=== PATIENT | female | born 1945 | race Caucasian/White ===

== ENCOUNTER 2017-11-16 14:22 | Inpatient (IN) | payer MEDICARE, SELFPAY ==
[~2017-11-16] VITALS: Ht 157.5 cm; Wt 74.3 kg
[~2017-11-16 14:22] MED LIST: ALBU90OI INH; ALBU90OI61 INH; AZIT250 PO; Actonel150 MG PO; Albuterol2.5 MG/0.5 INH; BENZ1; BENZ1 PO; BUPR150ER; BUPR150T2; Bumetanide2 MG PO; CALCAVITD PO; CALCITRIOL MC; CALGLU500 PO; CLON.5; COMBIVENT RESPIM4 GM INH; CYCL10 PO; Calcitriol0.25 MCG PO; DICMIS75EC PO; DIPH50; DULO30 PO; DULO60; DULO60 PO; FURO20; FURO40 PO; GABA300 PO; HYDACE5 PO; HYDPAM50 PO; IBUP800; IBUP800 PO; LISHYD1012 PO; LISI10; LISINOPRIL; LOXA10; LOXA10 PO; LOXAPINE; METCELP PO; METO10 PO; MIRT15; MIRT30 PO; Magnesium PO; OCEAN NS; OLME20 PO; ONDA8ODT MM; OXYC5 PO; PARI1 PO; PHENTERMINE PO; POTA10T; POTA10T PO; POTCHL10ER PO; PRAZ1 PO; PRED20 PO; PROM25 PO; PROP10 PO; Primidone50 MG PO; QUET100 PO; QUET300; QUET300 PO; RISE30 PO; RXOXYACE PO; Spironolactone25 MG PO; Synthroid25 MCG PO; TIOT18; VENL75ER PO; VITAMIN D35000 UNIT PO; [UNRECOGNIZED DRUG - OTHER] PO
[2017-11-16 15:18] LABS: BASOPHILS ABSOLUTE AUTO 0.03 K/mm3 (0.00-0.23); BASOPHILS PERCENT AUTO 0 % (0-2); EOSINOPHILS PERCENT AUTO 0 % (0-6); Hemoglobin 13.8 g/dL (11.5-16.0); IMMATURE GRAN ABSOLUTE AUTO 0.05 K/mm3 (0.00-0.10); IMMATURE GRAN PERCENT AUTO 0 % (0-1); LYMPHOCYTES ABSOLUTE AUTO 1.16 K/mm3 (0.84-5.20); LYMPHOCYTES PERCENT AUTO 7 % (21-46); MONOCYTES PERCENT AUTO 5 % (4-13); Mean Corpuscular HGB 28.8 pg (26.0-34.0); Mean Corpuscular HGB Conc 33.7 g/dL (31.5-36.5); Mean Corpuscular Volume 86 fL (80-100); Mean Platelet Volume 10.8 fL (9.1-12.4); NEUTROPHILS ABSOLUTE AUTO 15.22 K/mm3 (1.96-9.15); NEUTROPHILS PERCENT AUTO 88 % (41-73); Platelet Count 279 K/mm3 (150-400); RDW Coefficient Variation 12.2 % (11.7-14.2); RDW Standard Deviation 38.5 fL (35.1-46.3); Red Blood Cell Count 4.79 M/mm3 (3.80-5.20); White Blood Cell Count 17.26 K/mm3 (4.00-11.30)
[2017-11-16 15:37] LABS: Alanine Aminotransfer (ALT/SGP 17 U/L (12-78); Albumin, Blood 3.3 g/dL (3.4-5.0); Albumin/Globulin Ratio 0.8 (0.8-1.8); Alk Phos 98 U/L (50-136); Anion Gap 13 mmol/L (6-16); Aspartate Aminotrans (AST/SGOT 13 U/L (12-37); Bilirubin, Total 0.5 mg/dL (0.1-1.0); Blood Urea Nitrogen 13 mg/dL (8-24); Bun/Creatinine Ratio 16.3 (12.0-20.0); CO2, Blood 22 mmol/L (21-32); Chloride, Blood 104 mmol/L (98-108); Globulin, Blood 4.1 g/dL (2.2-4.0); Glomerular Filtration Rate >60 (60-); Glucose, Blood 147 mg/dL (70-99); Potassium, Blood 3.8 mmol/L (3.5-5.5); Sodium, Blood 139 mmol/L (136-145); Total Protein, Blood 7.4 g/dL (6.4-8.2)
[2017-11-16] MEDS ORDERED: Lisinopril2.5 MG PO (16:36)
[2017-11-16] MEDS ORDERED: NORT25 PO (16:37)
[2017-11-16] MEDS ORDERED: FISH OIL 1,0001 EAC1 PO (16:44)
[2017-11-16] MEDS ORDERED: CALCIUM 600 +1 EA11 PO (16:44)
[2017-11-16] MEDS ORDERED: POTCHL20ER PO (16:45)
[2017-11-16] MEDS ORDERED: FURO40 PO (16:45)
[2017-11-16] MEDS ORDERED: ATOR20 PO (16:45)
[2017-11-16] MEDS ORDERED: ACET500 PO (19:37)
[2017-11-16] MEDS ORDERED: ALBU90OI61 INH (19:37)
[2017-11-17 05:17] LABS: BASOPHILS ABSOLUTE AUTO 0.05 K/mm3 (0.00-0.23); BASOPHILS PERCENT AUTO 0 % (0-2); EOSINOPHILS ABSOLUTE AUTO 0.01 K/mm3 (0.00-0.68); EOSINOPHILS PERCENT AUTO 0 % (0-6); Hematocrit 35.6 % (33.0-51.0); Hemoglobin 11.5 g/dL (11.5-16.0); IMMATURE GRAN ABSOLUTE AUTO 0.04 K/mm3 (0.00-0.10); IMMATURE GRAN PERCENT AUTO 0 % (0-1); LYMPHOCYTES ABSOLUTE AUTO 1.85 K/mm3 (0.84-5.20); LYMPHOCYTES PERCENT AUTO 13 % (21-46); MONOCYTES ABSOLUTE AUTO 1.02 K/mm3 (0.16-1.47); MONOCYTES PERCENT AUTO 7 % (4-13); Mean Corpuscular HGB 28.3 pg (26.0-34.0); Mean Corpuscular HGB Conc 32.3 g/dL (31.5-36.5); Mean Corpuscular Volume 88 fL (80-100); Mean Platelet Volume 10.7 fL (9.1-12.4); NEUTROPHILS ABSOLUTE AUTO 10.84 K/mm3 (1.96-9.15); NEUTROPHILS PERCENT AUTO 78 % (41-73); Platelet Count 226 K/mm3 (150-400); RDW Coefficient Variation 12.3 % (11.7-14.2); RDW Standard Deviation 39.5 fL (35.1-46.3); Red Blood Cell Count 4.07 M/mm3 (3.80-5.20); White Blood Cell Count 13.81 K/mm3 (4.00-11.30)
[2017-11-17 05:48] LABS: Alanine Aminotransfer (ALT/SGP 26 U/L (12-78); Albumin, Blood 2.5 g/dL (3.4-5.0); Albumin/Globulin Ratio 0.7 (0.8-1.8); Alk Phos 101 U/L (50-136); Anion Gap 9 mmol/L (6-16); Aspartate Aminotrans (AST/SGOT 18 U/L (12-37); Bilirubin, Total 0.7 mg/dL (0.1-1.0); Blood Urea Nitrogen 10 mg/dL (8-24); Bun/Creatinine Ratio 12.8 (12.0-20.0); CO2, Blood 23 mmol/L (21-32); Calcium, Blood 8.6 mg/dL (8.5-10.1); Chloride, Blood 103 mmol/L (98-108); Creatinine, Blood 0.78 mg/dL (0.40-1.00); Globulin, Blood 3.8 g/dL (2.2-4.0); Glomerular Filtration Rate >60 (60-); Glucose, Blood 95 mg/dL (70-99); Potassium, Blood 3.7 mmol/L (3.5-5.5); Sodium, Blood 135 mmol/L (136-145); Total Protein, Blood 6.3 g/dL (6.4-8.2)
[2017-11-18 12:05] LABS: Source, Urine Catheter
[2017-11-18 12:08] LABS: Bilirubin, Urine Neg (Neg); Blood, Urine Neg (Neg); Glucose Qualitative, Urine Neg (Neg); Ketones, Urine Neg (Neg); Nitrite, Urine Pos (Neg); Urobilinogen, Urine NORM (Normal)
[2017-11-18 12:41] LABS: Leukocyte Esterase, Urine 2+ (Neg); Protein, Urine 1+ (Neg)
[2017-11-18 12:49] LABS: Appearance, Urine Clear (Clear); Bacteria Few /hpf; Color, Urine Yellow (P-Yellow); Red Blood Cells, Urine 0-2 /hpf (0-2); Squamous Epithelial Cells Not Seen /hpf (Few); White Blood Cells, Urine 0-2 /hpf (0-5)
[2017-11-19 04:45] LABS: BASOPHILS ABSOLUTE AUTO 0.03 K/mm3 (0.00-0.23); BASOPHILS PERCENT AUTO 0 % (0-2); EOSINOPHILS ABSOLUTE AUTO 0.18 K/mm3 (0.00-0.68); EOSINOPHILS PERCENT AUTO 2 % (0-6); Hematocrit 31.4 % (33.0-51.0); Hemoglobin 10.3 g/dL (11.5-16.0); IMMATURE GRAN ABSOLUTE AUTO 0.05 K/mm3 (0.00-0.10); IMMATURE GRAN PERCENT AUTO 1 % (0-1); LYMPHOCYTES ABSOLUTE AUTO 1.63 K/mm3 (0.84-5.20); LYMPHOCYTES PERCENT AUTO 22 % (21-46); MONOCYTES ABSOLUTE AUTO 0.73 K/mm3 (0.16-1.47); MONOCYTES PERCENT AUTO 10 % (4-13); Mean Corpuscular HGB Conc 32.8 g/dL (31.5-36.5); Mean Corpuscular Volume 89 fL (80-100); Mean Platelet Volume 10.1 fL (9.1-12.4); NEUTROPHILS PERCENT AUTO 65 % (41-73); Platelet Count 233 K/mm3 (150-400); RDW Coefficient Variation 12.3 % (11.7-14.2); RDW Standard Deviation 39.8 fL (35.1-46.3); Red Blood Cell Count 3.55 M/mm3 (3.80-5.20); White Blood Cell Count 7.42 K/mm3 (4.00-11.30)
[2017-11-19 05:11] LABS: Anion Gap 9 mmol/L (6-16); Blood Urea Nitrogen 6 mg/dL (8-24); Bun/Creatinine Ratio 10.1 (12.0-20.0); CO2, Blood 23 mmol/L (21-32); Calcium, Blood 7.8 mg/dL (8.5-10.1); Chloride, Blood 106 mmol/L (98-108); Creatinine, Blood 0.59 mg/dL (0.40-1.00); Glomerular Filtration Rate >60 (60-); Glucose, Blood 89 mg/dL (70-99); Potassium, Blood 3.5 mmol/L (3.5-5.5); Sodium, Blood 138 mmol/L (136-145)
[2017-11-20 05:37] LABS: Hematocrit 31.8 % (33.0-51.0); Hemoglobin 10.4 g/dL (11.5-16.0)
[2017-11-20] MEDS ORDERED: FAMO20 PO (10:54)
[2017-11-20] MEDS ORDERED: BENZ100A PO (10:55)
[2017-11-20] MEDS ORDERED: METR500 PO (10:56)
[2017-11-20] MEDS ORDERED: CIPR500 PO (10:56)
[2017-11-20] MEDS ORDERED: IBUP400 PO (10:56)
[2017-11-20] MEDS ORDERED: ONDA4ODT (10:57)
== END 2017-11-20 11:14 | disposition home or self-care (01) | DRG 872 ==
LOC: ER 14:22 → MEDS 16:53 → ENPENDDIS 11-20 10:55 → MEDS 11-20 11:14
PROVIDERS: Internal Medicine; Physician Assistant
DX: A41.9 Sepsis, unspecified organism (principal); K57.32 Diverticulitis of large intestine without perforation or abscess without bleeding; J44.9 Chronic obstructive pulmonary disease, unspecified; R25.1 Tremor, unspecified; G89.29 Other chronic pain; M54.9 Dorsalgia, unspecified; I12.9 Hypertensive chronic kidney disease with stage 1 through stage 4 chronic kidney disease, or unspecified chronic kidney disease; N18.9 Chronic kidney disease, unspecified; Z87.891 Personal history of nicotine dependence; Z88.8 Allergy status to other drugs, medicaments and biological substances; Z79.899 Other long term (current) drug therapy
CPT/HCPCS: 36415; 74176; 80048; 80053; 81001; 83605; 83690; 85014; 85018; 85025; 87040; 87493; 93005; 93010; 94760; 96365; 96367; 96375; 96376; 99285; J0696; J1170; J1650; J2405; J3010; J7030

== ENCOUNTER → 2017-12-25 | Outpatient (CLI) | payer MEDICARE, SELFPAY ==
[~2017-12-25] MED LIST changes: +ACET500 PO; +ATOR20 PO; +BENZ100A PO; +CALCIUM 600 +1 EA11 PO; +CIPR500 PO; +FAMO20 PO; +FISH OIL 1,0001 EAC1 PO; +IBUP400 PO; +Lisinopril2.5 MG PO; +METR500 PO; +NORT25 PO; +ONDA4ODT; +POTCHL20ER PO
[2017-12-26 10:33] LABS: Candida species (DNA Probe) Negative (NEGATIVE); G. vaginalis (DNA Probe) Negative (NEGATIVE); T. vaginalis (DNA Probe) Negative (NEGATIVE)
== END | disposition home or self-care (01) ==
LOC: LAB SHORT 10:31 → LAB 10:31
PROVIDERS: Obstetrics & Gynecology
DX: N76.0 Acute vaginitis (principal)
CPT/HCPCS: 87480; 87510; 87660

== ENCOUNTER → 2017-12-25 | Outpatient (CLI) | payer MEDICARE, SELFPAY | END | disposition home or self-care (01) | LOC: LAB SHORT 13:05 → LAB 13:05 | DX: N87.9 Dysplasia of cervix uteri, unspecified (principal) | CPT/HCPCS: 88305 ==